=== PATIENT | male | born 1945 | race Caucasian/White ===

== ENCOUNTER 2024-02-09 13:28 | Inpatient (IN) | payer MEDICARE, OTHER ==
[~2024-02-09] VITALS: Ht 170.2 cm; Wt 58.1 kg
[2024-02-09] MEDS: BLOOD SUGAR DIAGNOSTIC 1 EACH STRIP VI ONE (19:23)
[2024-02-09] MEDS ORDERED: MAG HYDROX/AL HYDROX/SIMETH 30 ML LIQUID UDC PO PRN (20:00)
[2024-02-09] MEDS ORDERED: ESCI10TA PO (20:00)
[2024-02-09] MEDS ORDERED: MAGNESIUM HYDROXIDE 30 ML LIQUID UDC PO PRN (20:00)
[2024-02-09] MEDS ORDERED: MAGN200T5 PO (20:00)
[2024-02-09] MEDS ORDERED: SENN8.6T19 PO (20:00)
[2024-02-09] MEDS ORDERED: MELA10TA7 SL (20:00)
[2024-02-09] MEDS ORDERED: TAMS-3 PO (20:00)
[2024-02-09] MEDS ORDERED: [UNRECOGNIZED DRUG - OTHER] (20:09)
[2024-02-09] MEDS ORDERED: seroquel (20:09)
[2024-02-09] MEDS ORDERED: depakote (20:09)
[2024-02-09 20:13] VITALS: BP 147/60; TEMP 98.1; O2SAT 96
[2024-02-09] MEDS: CLONAZEPAM 0.5 MG TABLET PO PRN (21:40)
[2024-02-10 07:46] VITALS: BP 139/45; TEMP 98.6; O2SAT 97
[2024-02-10 16:00] VITALS: BP 139/72; TEMP 97.6; O2SAT 98
[2024-02-10] MEDS ORDERED: PANT40TA49 PO (16:32)
[2024-02-10] MEDS ORDERED: ROSU20TA2 PO (16:32)
[2024-02-10] MEDS ORDERED: MEMA10TA PO (16:32)
[2024-02-10] MEDS ORDERED: MULT-1201 PO (16:32)
[2024-02-10] MEDS ORDERED: DOCU-141 PO (16:32)
[2024-02-10] MEDS ORDERED: LACT10SO58 PO (16:32)
[2024-02-10] MEDS ORDERED: DOCUSATE SODIUM 100 MG CAPSULE PO PRN (17:15)
[2024-02-10 20:00] VITALS: BP 159/41; TEMP 97.5; O2SAT 95
[2024-02-10] MEDS: ATORVASTATIN 40 MG TABLET PO SCH (21:03)
[2024-02-10] MEDS: MAGNESIUM OXIDE 400 MG TABLET PO SCH (21:03)
[2024-02-10] MEDS: TAMSULOSIN HCL 0.4 MG CAP.SR.24H PO SCH (21:03)
[2024-02-10] MEDS: SENNOSIDES 1 TABLET PO SCH (21:04)
[2024-02-10] MEDS: TEMAZEPAM 7.5 MG CAPSULE PO PRN (21:42)
[2024-02-11] MEDS: PANTOPRAZOLE SODIUM 40 MG TABLET.DR PO SCH (06:05)
[2024-02-11 08:04] VITALS: BP 114/54; TEMP 98; O2SAT 99
[2024-02-11 08:19] LABS: BASOPHILS % (AUTO) 0.7 % (0.0-2.0); EOSINOPHILS # (AUTO) 0.3 K/uL (0.0-0.7); EOSINOPHILS % (AUTO) 5.5 % (0.0-7.0); HEMATOCRIT 44.7 % (36.7-47.1); HEMOGLOBIN 14.1 g/dL (12.5-16.3); LYMPHOCYTES # (AUTO) 1.7 K/uL (0.8-4.8); LYMPHOCYTES % (AUTO) 32.5 % (20.5-51.5); MEAN CORPUSCULAR HEMOGLOBIN 25.1 uug (23.8-33.4); MEAN CORPUSCULAR HGB CONC 32 g/dL (32.5-36.3); MEAN CORPUSCULAR VOLUME 79.4 fL (73.0-96.2); MONOCYTES # (AUTO) 0.5 K/uL (0.1-1.30); MONOCYTES % (AUTO) 9.4 % (0.0-11.0); NEUTROPHILS # (AUTO) 2.7 K/uL (1.8-8.9); NEUTROPHILS % (AUTO) 51.9 % (38.5-71.5); PLATELET COUNT (AUTO) 195 K/uL (152-348); RED BLOOD CELL COUNT(AUTO) 5.62 MIL/uL (4.06-5.63); RED CELL DISTRIBUTION WIDTH 13.9 % (12.1-16.2); WHITE BLOOD COUNT (AUTO) 5.2 K/uL (3.6-10.2)
[2024-02-11 08:38] LABS: DIFFERENTIAL COMMENT 1
[2024-02-11] MEDS: ESCITALOPRAM OXALATE 10 MG TABLET PO SCH (09:00)
[2024-02-11] MEDS: DIVALPROEX SPRINKLE 125 MG CAP.SPRINK PO SCH (09:00)
[2024-02-11] MEDS ORDERED: Medication Not On Formulary EA (Rosuvastatin Calcium (Crestor) 20 MG) PO SCH (09:00)
[2024-02-11 09:11] LABS: ALANINE AMINOTRANSFERASE 24 U/L (16-63); ALBUMIN 3.5 g/dL (3.4-5.0); ALKALINE PHOSPHATASE 81 U/L (50-136); ASPARTATE AMINOTRANSFERASE 14 U/L (15-37); BILIRUBIN,TOTAL 0.4 mg/dL (0.2-1.0); CALCIUM 9.6 mg/dL (8.5-10.1); CARBON DIOXIDE 28 mmol/L (21-32); CHLORIDE 106 mmol/L (98-107); CREATININE 0.9 mg/dL (0.6-1.3); GLUCOSE 88 mg/dL (74-106); MAGNESIUM 2.3 mg/dL (1.8-2.4); PHOSPHOROUS 3.7 mg/dL (2.5-4.9); POTASSIUM 3.8 mmol/L (3.5-5.1); SODIUM SERUM 143 mmol/L (136-145); TOTAL PROTEIN, SERUM 7.4 g/dL (6.4-8.2); UREA NITROGEN, BLOOD 18 mg/dL (7-18)
[2024-02-11] MEDS: MULTIVIT, IRON, MIN NO. 8, FA TABLET PO SCH (09:11)
[2024-02-11 09:39] LABS: THYROID STIMULATING HORMONE 2.597 mIU/mL (0.358-3.740)
[2024-02-11 15:24] VITALS: BP 154/62; TEMP 98; O2SAT 98
[2024-02-11 20:00] VITALS: BP 142/65; TEMP 98; O2SAT 99
[2024-02-11] MEDS: QUETIAPINE FUMARATE 25 MG TABLET PO SCH (21:29)
[2024-02-12 08:25] VITALS: BP 131/43; TEMP 97.9; O2SAT 96
[2024-02-12 17:04] VITALS: BP 114/51; TEMP 97.9; O2SAT 97
[2024-02-12 23:22] VITALS: BP 125/59; TEMP 97.9; O2SAT 98
[2024-02-13 08:36] VITALS: BP 143/70; TEMP 98.2; O2SAT 98
[2024-02-13 16:00] VITALS: BP 163/70; TEMP 98; O2SAT 97
[2024-02-13] MEDS: LACTULOSE 20 G/30 ML LIQUID UDC PO PRN (18:50)
[2024-02-13 20:10] VITALS: BP 148/74; TEMP 98.1; O2SAT 96
[2024-02-14 07:46] VITALS: BP 107/59; TEMP 98; O2SAT 100
[2024-02-14 15:57] VITALS: BP 114/57; TEMP 98.2; O2SAT 99
[2024-02-14 20:32] VITALS: BP 110/55; TEMP 98.1; O2SAT 98
[2024-02-15 08:18] VITALS: BP 154/91; TEMP 98.2; O2SAT 98
[2024-02-15 08:31] LABS: CALCIUM 9.7 mg/dL (8.5-10.1); CREATININE 0.9 mg/dL (0.6-1.3); MAGNESIUM 2.1 mg/dL (1.8-2.4); POTASSIUM 4.5 mmol/L (3.5-5.1)
[2024-02-15 15:49] VITALS: BP 136/61; TEMP 98; O2SAT 99
[2024-02-15 19:53] VITALS: BP 119/60; TEMP 98.1; O2SAT 99
[2024-02-16 07:40] VITALS: BP 140/59; TEMP 98; O2SAT 98
[2024-02-16] MEDS: ENSURE WITH FIBER 237 ML LIQUID (CHOCOLATE) PO SCH (12:15)
[2024-02-16] MEDS: risperiDONE 0.5 MG TABLET PO SCH (15:11)
[2024-02-16 15:41] VITALS: BP 146/66; TEMP 98; O2SAT 100
[2024-02-16 20:00] VITALS: BP 142/60; TEMP 99.3; O2SAT 93
[2024-02-17 07:58] VITALS: BP 137/59; TEMP 98; O2SAT 99
[2024-02-17 15:17] VITALS: BP 146/72; TEMP 98; O2SAT 98
[2024-02-17 20:00] VITALS: BP 118/55; TEMP 98.8; O2SAT 98
[2024-02-18 08:06] VITALS: BP 132/60; TEMP 98; O2SAT 98
[2024-02-18 08:25] LABS: CREATININE 0.8 mg/dL (0.6-1.3); MAGNESIUM 1.9 mg/dL (1.8-2.4); POTASSIUM 3.9 mmol/L (3.5-5.1)
[2024-02-18 16:23] VITALS: BP 123/72; TEMP 98; O2SAT 96
[2024-02-18 20:00] VITALS: BP 127/54; TEMP 98.2; O2SAT 100
[2024-02-19 08:21] VITALS: BP 119/75; TEMP 98.1; O2SAT 98
[2024-02-19 17:40] VITALS: BP 131/55; TEMP 98; O2SAT 97
[2024-02-19 20:00] VITALS: BP 130/60; TEMP 97.9; O2SAT 97
[2024-02-20 07:56] VITALS: BP 117/58; TEMP 97.9; O2SAT 97
[2024-02-20 16:42] VITALS: BP 116/68; TEMP 97.9; O2SAT 97
[2024-02-20 20:37] VITALS: BP 110/61; TEMP 97.8; O2SAT 96
[2024-02-21 10:16] VITALS: BP 121/58; TEMP 97.6; O2SAT 98
[2024-02-21 19:52] VITALS: BP 147/72; TEMP 97.8; O2SAT 100
[2024-02-22 08:06] VITALS: BP 115/57; TEMP 98; O2SAT 96
[2024-02-22 15:29] VITALS: BP 103/51; TEMP 98; O2SAT 96
[2024-02-22 19:44] VITALS: BP 135/65; TEMP 98.1; O2SAT 99
[2024-02-23 07:30] VITALS: BP 124/53; TEMP 98; O2SAT 100
[2024-02-23 15:23] VITALS: BP 130/49; TEMP 98; O2SAT 99
[2024-02-23 20:00] VITALS: BP 128/64; TEMP 94.3; O2SAT 99
[2024-02-24] MEDS: ACETAMINOPHEN 650 MG/20.3 ML LIQUID UDC PO PRN (01:32)
[2024-02-24 07:54] VITALS: BP 140/67; TEMP 98; O2SAT 98
[2024-02-24 15:08] VITALS: BP 123/45; TEMP 98; O2SAT 99
== END 2024-02-24 15:55 | DRG 885 ==
LOC: GPS 16:56
PROVIDERS: ADMIT Psychiatry & Neurology Psychiatry; ATTEND Internal Medicine
DX: F29 Unspecified psychosis not due to a substance or known physiological condition (principal); F03.918 Unspecified dementia, unspecified severity, with other behavioral disturbance; F03.94 Unspecified dementia, unspecified severity, with anxiety; E44.1 Mild protein-calorie malnutrition; E87.0 Hyperosmolality and hypernatremia; F03.93 Unspecified dementia, unspecified severity, with mood disturbance; J44.9 Chronic obstructive pulmonary disease, unspecified; E78.5 Hyperlipidemia, unspecified; N40.0 Benign prostatic hyperplasia without lower urinary tract symptoms; Z68.20 Body mass index [BMI] 20.0-20.9, adult; Z86.79 Personal history of other diseases of the circulatory system; Z79.899 Other long term (current) drug therapy; Z91.81 History of falling; E03.9 Hypothyroidism, unspecified
CPT/HCPCS: 36415; 71045; 83735; 84100; 84153; 84443; 84484; 85025; 93005